=== PATIENT | female | born 1950 | race Caucasian/White ===

== ENCOUNTER → 2016-07-08 | Outpatient (CLI) | payer MEDICARE, MEDICAID ==
[~2016-07-08] MED LIST: ACET160E15 PEG; ASPI325T PEG; BUDE0.5A6 AEROSOL; DULO60CA46 PEG; GUAI100S13 PEG; HYDR-4074 PEG; IPRA3AMP AEROSOL; LANS15TA3 GT; LEVE500S PEG; LORA0.5T2 PEG; MAG360OR92 PEG; MAGN400O4 PEG; METO25TA6 PEG; METR500T PEG; POLY17PO6 PEG; QUET200T PEG; TRAZ-170 PEG; WHEY227P PEG; [UNRECOGNIZED DRUG - CODE] PEG
[2016-07-08 08:03] LABS: BLOOD, URINE 3+ (NEGATIVE); COLOR,URINE YELLOW (YELLOW); LEUKOCYTE ESTERASE ,URINE 2+ (NEGATIVE); NITRITE,URINE NEGATIVE (NEGATIVE)
[2016-07-08 08:09] LABS: WBC,URINE TNTC /HPF (0-5)
[2016-07-08 08:11] LABS: RBC,URINE 30-50 /HPF (0-3)
[2016-07-08 08:12] LABS: BACTERIA,URINE 4+ (NEGATIVE); SQUAMOUS EPITHELIAL CELL,UR NONE SEEN
== END ==
LOC: LABN.KB 07:56
PROVIDERS: ATTEND Family Medicine
DX: N39.0 Urinary tract infection, site not specified (principal)
CPT/HCPCS: 81001; 87086

== ENCOUNTER 2016-07-30 20:08 | Emergency (ER) | payer MEDICARE, MEDICAID ==
[~2016-07-30] VITALS: Ht 165.1 cm; Wt 89.6 kg
[2016-07-30 20:08] VITALS: Ht 165.1 cm; Wt 89.6 kg
--- OUTSIDE RECORDS SUMMARY | 2016-07-30 20:13 | XMS REPORT | Continuity of Care Document ---
Author Author [facility] Organization [facility] Address Unknown Phone Unavailable Support Name Relationship Address Phone CATHERINE YEE MD Caregiver [address] [place] [address] BELLE FARAH Next Of Kin [address] [place] [address] Insurance Providers Payer Name Policy Number Subscriber Name Relationship Medicare [id number] Belle Nugent 17 Self Alee [employer] [id number] Belle Nugent 17 Self Problems No known problems or medical conditions. Medications Medication Dose Route Sig Days/Qty Instructions Order Date Discontinued Date Status Trazodone Hcl 150 Mg PO BEDTIME 04/02/08 08/07/09 Discontinued Bupropion Hcl 200 Mg PO TWICE A DAY 04/02/08 08/07/09 Discontinued Sertraline Hcl 200 Mg PO DAILY 08/07/09 12/04/09 Discontinued Gabapentin 600 Mg PO THREE TIMES A DAY 12/04/09 03/17/10 Discontinued Sertraline Hcl 150 Mg PO BEDTIME 03/16/10 05/20/10 Discontinued Tramadol Hcl 50 Mg PO NEEDED 03/17/10 04/12/11 Discontinued Quetiapine Fumarate 150 Mg PO DAILY 03/17/10 05/19/10 Discontinued Pramipexole Di-Hcl 0.25 Mg PO BEDTIME 03/17/10 05/19/10 Discontinued Trazodone Hcl 75 Mg PO BEDTIME 03/17/10 05/19/10 Discontinued Albuterol Sulfate 1.25 Mg IH 1x/WK 03/17/10 04/12/11 Discontinued Ipratropium/Albuterol Sulfate 2 Puff IH NEEDED 03/17/10 04/12/11 Discontinued Pramipexole Di-Hcl 0.125 Mg PO BEDTIME 05/19/10 04/12/11 Discontinued Carbamazepine 200 Mg PO TWICE A DAY 05/19/10 05/19/10 Discontinued Potassium Chloride 20 Meq PO DAILY 05/19/10 05/20/10 Discontinued Quetiapine Fumarate 50 Mg PO DAILY 30 Qty 12/12/12 Active Quetiapine Fumarate 300 Mg PO BEDTIME 30 Qty 12/12/12 Active Levetiracetam 500 Mg PO TWICE A DAY 60 Qty 12/12/12 Active Trazodone Hcl 100 Mg PO BEDTIME 60 Qty MAY TAKE UP TO 200MG IF NEEDED Active Duloxetine Hcl 60 Mg PO DAILY 60 Qty 12/12/12 Active Vilazodone Hydrochloride 20 Mg PO DAILY 30 Qty 12/12/12 Active Social History Social History Problem Response Recorded Date/Time Smoking Status Current every day smoker 09/26/2013 7:51am Chewing Tobacco Status No 09/26/2013 7:51am Hx Substance Use Y SMOKES MARAJUANA - NONE FOR A FEW DAYS WILL REFRAIN UNTIL AFTER PROCEDURE 09/26/2013 7:51am Hx Alcohol Use No 09/26/2013 7:51am Has the pt used tobacco in the last 12 months Yes 09/26/2013 7:51am Query Response Start Date Stop Date Smoking Status Current every day smoker Hospital Discharge Instructions No hospital discharge instructions. Plan of Care No plan of care. Functional Status No functional status results. Allergies, Adverse Reactions, Alerts Allergen Type Severity Reaction Status Last Updated Pentazocine Lactate Adverse Reaction Severe VIOLENT Active 04/12/11 Codeine Adverse Reaction Unknown HEADACHE Active 04/12/11 Gold Au-198 Allergy Unknown Active 04/12/11 Immunizations Name Given Type Hx Influenza Vaccination No Historical Hx Pneumococcal Vaccination No Historical Hx Influenza Vaccination No Historical Vital Signs Acute Vital Signs Vital Response Date/Time Temperature (Fahrenheit) 97.0 deg F (96.8 - 99.1) Temperature (Calculated Celsius) 36.52428 degrees C (36.0 - 37.3) Temperature Source Temporal Pulse Rate (adult) 84 bpm (60 - 100) Respiratory Rate 16 breaths/min (10 - 20) O2 Sat by Pulse Oximetry 95 % (90 - 100) Blood Pressure 111/75 mm Hg Blood Pressure Source Automatic Cuff Height 5 ft 7 in Weight 213 lb Body Mass Index 33.0 kg/m^2 Results Test Source Date Result Interp. Ref. Range Comments Acetaminophen Level December 04, 2009 11:15am < 10 UG/ML L 10-30 Activated Partial Thromboplast Time May 20, 2010 9:35am 32.5 SEC N 24-36 Alanine Aminotransferase (ALT/SGPT) April 12, 2011 5:08pm 7 U/L L 9- 52 Albumin April 12, 2011 5:08pm 4.5 G/DL N 3.5-5.0 Albumin/Globulin Ratio April 12, 2011 5:08pm 1.2 RATIO N 1.1-2.2 Alcohol, Quantitative December 04, 2009 11:15am <10 MG/DL - Alkaline Phosphatase April 12, 2011 5:08pm 86 U/L N 38-126 Ammonia December 04, 2009 11:25am < 9 UMOL/L L 9-33 Anion Gap September 30, 2011 3:23pm 9 MEQ/L N 5-15 Aspartate Amino Transf (AST/SGOT) April 12, 2011 5:08pm 34 U/L N 14- 36 BUN/Creatinine Ratio September 30, 2011 3:23pm 18 RATIO N 6-26 Basophils # (Auto) April 12, 2011 5:08pm 0.0 T/MM3 N 0-0.2 Basophils (%) (Auto) April 12, 2011 5:08pm 0.3 % N 0-2 Blood Urea Nitrogen October 11, 2012 3:27pm 10.0 MG/DL N 7-17 Calcium Level September 30, 2011 3:23pm 9.0 MG/DL N 8.4-10.2 Calculated Osmolality September 30, 2011 3:23pm 268 MOSM/KG N 261-280 Carbamazepine (Tegretol) Level March 18, 2010 10:29am 4.0 MCG/ML N 4- 12 Carbon Dioxide Level September 30, 2011 3:23pm 28 MEQ/L N 22-30 Chloride Level September 30, 2011 3:23pm 103 MEQ/L N 98-107 Conjugated Bilirubin April 12, 2011 5:08pm 0.00 MG/DL N 0.00-0.30 Creatinine October 11, 2012 3:27pm 0.8 MG/DL N 0.7-1.2 Eosinophils # (Auto) April 12, 2011 5:08pm 0.2 T/MM3 N 0-0.5 Eosinophils (%) (Auto) April 12, 2011 5:08pm 1.9 % N 0-4 Erythrocyte Sedimentation Rate May 06, 2010 1:55pm 59 MM/HR H 0-20 Free Thyroxine March 18, 2010 10:29am 1.21 NG/DL N 0.78-2.19 Globulin April 12, 2011 5:08pm 3.9 G/DL H 2.4-3.6 Glucose Level September 30, 2011 3:23pm 55 MG/DL L 65-110 Hematocrit April 12, 2011 5:08pm 41.7 % N 36-46 Hemoglobin April 12, 2011 5:08pm 14.4 GM/DL N 12-16 Influenza Type A Antigen March 18, 2010 11:00am Negative - Negative for Flu A protein antigen. Assay sensitivity isbetween 65-83%. A negative result does not exclude influenza virus infection. "Influenza FA" may be ordered if clinical presentation warrants confirmatory testing. Influenza Type B Antigen March 18, 2010 11:00am Negative - Negative for Flu B protein antigen. Assay sensitivity isbetween 65-83%. A negative result does not exclude influenza virus infection. "Influenza FA" may be ordered if clinical presentation warrants confirmatory testing. Lymphocytes # (Auto) April 12, 2011 5:08pm 2.3 T/MM3 N 1-4.8 Lymphocytes (%) (Auto) April 12, 2011 5:08pm 22.8 % L 23-45 Magnesium Level March 18, 2010 10:29am 2.2 MG/DL N 1.6-2.3 Mean Corpuscular Hemoglobin April 12, 2011 5:08pm 29.9 UUG N 26-34 Mean Corpuscular Hemoglobin Concent April 12, 2011 5:08pm 34.5 GM/DL N 31-37 Mean Corpuscular Volume April 12, 2011 5:08pm 86.5 UM3 N 80-100 Mean Platelet Volume April 12, 2011 5:08pm 10.8 UM3 N 9.4-12.4 Monocytes # (Auto) April 12, 2011 5:08pm 0.6 T/MM3 N 0-0.8 Monocytes (%) (Auto) April 12, 2011 5:08pm 6.1 % N 0-9.0 Neutrophils # (Auto) April 12, 2011 5:08pm 7.0 T/MM3 N 1.8-7.7 Neutrophils (%) (Auto) April 12, 2011 5:08pm 68.7 % H 33-66 Phenytoin (Dilantin) Level April 28, 2009 10:30am 13.3 UG/ML N 10-20 Platelet Count April 12, 2011 5:08pm 331 T/MM3 N 130-400 Potassium Level September 30, 2011 3:23pm 4.4 MEQ/L N 3.6-5 Prolactin December 04, 2009 11:15am 8.6 NG/ML - Male: 3.3 - 20.8 ng/ mLFemale: Premenopausal: 2.1 - 47.6 ng/mL, Postmenopausal: 0 - 41.4 ng/mL Prothromb Time International Ratio May 20, 2010 9:35am 1.19 H 0.86- 1.10 THERAPUTIC RANGE=2.00-3.00 FOR ANTI-THROMBOSIS THERAPUTIC RANGE=2.50- 3.50 FOR IMPLANTED VALVE RDW Standard Deviation April 12, 2011 5:08pm 42.9 FL N 36.9-50.2 Red Blood Count April 12, 2011 5:08pm 4.82 M/MM3 N 4.00-5.20 Salicylates Level December 04, 2009 11:15am 10.0 MG/DL N 2-20 Serum Osmolality May 19, 2011 3:00pm Ref lab rpt scanned - --- 05/20/11 1258 ---SAWYEROS previously reported as: SEND OUT Sodium Level September 30, 2011 3:23pm 140 MEQ/L N 134-144 Thyroid Stimulating Hormone (TSH) May 19, 2011 3:00pm 1.49 MIU/L N 0.47-4.68 Total Bilirubin April 12, 2011 5:08pm 0.40 MG/DL N 0.20-1.30 Total Protein April 12, 2011 5:08pm 8.4 G/DL H 6.3-8.2 Troponin I December 04, 2009 11:15am 0.001 ng/ml N 0-0.12 Unconjugated Bilirubin April 12, 2011 5:08pm 0.00 MG/DL N 0.00-1.10 Urine Amorphous Urates December 04, 2009 11:28am Many - Has specimen been collected/obtained? Y Urine Amphetamines Screen December 04, 2009 11:28am Positive NG/ML - Urine Bacteria April 12, 2011 6:26pm Trace H - Has specimen been collected/obtained? Y Urine Barbiturates Screen December 04, 2009 11:28am Negative NG/ML - Urine Benzodiazepines Screen December 04, 2009 11:28am Negative NG/ML - Urine Bilirubin April 12, 2011 6:26pm Negative - Has specimen been collected/obtained? Y Urine Blood April 12, 2011 6:26pm 4+ H - Has specimen been collected/ obtained? Y Urine Cocaine Screen December 04, 2009 11:28am Negative NG/ML - Urine Collection Type April 12, 2011 6:26pm Voided - QUANTITY NOT SUFFICIENT MICROSCOPIC PERFORMED ON UNSPUNURINE JTA Urine Color April 12, 2011 6:26pm Yellow - Has specimen been collected/obtained? Y Urine Culture Indicated April 12, 2011 6:26pm Cult not indicated - Has specimen been collected/obtained? Y Urine Drug Screen Confirmation December 04, 2009 11:38am Sent out - Urine Glucose (UA) April 12, 2011 6:26pm Negative - Has specimen been collected/obtained? Y Urine Hyaline Casts August 07, 2009 5:40pm 20-30 /LPF - Has specimen been collected/obtained? Y Urine Ketones April 12, 2011 6:26pm Negative - Has specimen been collected/obtained? Y Urine Leukocyte Esterase April 12, 2011 6:26pm Trace H - Has specimen been collected/obtained? Y Urine Methamphetamines Screen December 04, 2009 11:28am Positive NG/ML - Urine Mucus March 09, 2010 10:26am Present - Urine Nitrite April 12, 2011 6:26pm Negative - Has specimen been collected/obtained? Y Urine Opiates Screen December 04, 2009 11:28am Negative NG/ML - Urine Osmolality May 19, 2011 3:00pm Ref lab rpt scanned - --- 05/20/11 1258 ---UOSM previously reported as: SEND OUT Urine Phencyclidine Screen December 04, 2009 11:28am Negative NG/ML - Urine Protein April 12, 2011 6:26pm Trace H - Has specimen been collected/obtained? Y Urine RBC April 12, 2011 6:26pm 3-5 /HPF H - Has specimen been collected/obtained? Y Urine Specific Reading April 12, 2011 6:26pm 1.020 - Has specimen been collected/obtained? Y Urine Squamous Epithelial Cells April 12, 2011 6:26pm Few - Has specimen been collected/obtained? Y Urine Tricyclic Antidepressants December 04, 2009 11:28am Negative NG/ML - Urine Turbidity April 12, 2011 6:26pm Clear - Has specimen been collected/obtained? Y Urine Urobilinogen April 12, 2011 6:26pm Normal EU/DL - Has specimen been collected/obtained? Y Urine WBC April 12, 2011 6:26pm 0-1 /HPF - PERFORMED ON UNSPUN URINE JTA Urine pH April 12, 2011 6:26pm 9.0 H - Has specimen been collected/ obtained? Y Vitamin B12 Level December 04, 2009 11:15am 513 PG/ML N 239-931 White Blood Count April 12, 2011 5:08pm 10.2 T/MM3 N 4.5-11.0 Zinc Level March 16, 2010 12:10pm Ref lab rpt scanned - --- 03/25 1622 ---ZINCS previously reported as: SEND OUT Lab Scanned Report October 11, 2012 7:42pm LAB TEST FORM REQUEST [id number] - Urine Methadone Screen December 04, 2009 11:28am Negative NG/ML - Urine Cannabinoids Screen December 04, 2009 11:28am Positive NG/ML - Glomerular Filtration Rate Calc October 11, 2012 3:27pm 73 - Immature Granulocyte # (Auto) April 12, 2011 5:08pm 0.02 T/MM3 N 0.00- 0.03 Immature Granulocyte % (Auto) April 12, 2011 5:08pm 0.2 % N 0.0-0.5 Urine Acetaminophen Screen December 04, 2009 11:28am Negative NG/ML - Urine Microscopic Not Indicated May 06, 2010 1:47pm Not indicated - Blood Culture Blood May 06, 2010 2:00pm NO GROWTH AFTER 5 DAYS Gram Stain Shoulder, Intraoperative Site-Left May 20, 2010 2:14pm Urine Culture Urine, Clean Catch Voided March 18, 2010 11:22am Mixed Gram Positive Organisms Procedures Procedure Status Date Provider(s) INJECT SPINE LUMBAR/SACRAL completed 09/05/13 CATHERINE YEE MD Lumbar epidural steroid injection completed 09/26/13 CATHERINE YEE MD
--- OUTSIDE RECORDS SUMMARY | 2016-07-30 20:13 | XMS REPORT | Referral Summary ---
Author Author [facility] Organization [facility] Address Unknown Phone Unavailable Care Team Providers Care Director Of Communications Name Role Phone Cuate Ruelas Primary Care Physician [phone] Encounter Date(s): 02/24/16 - 02/24/16 [facility], [address] [place] [address]- Discharge Diagnosis: Malfunction of gastrostomy tube Discharge Disposition: 01-Home or Self Care Attending Physician: Romeo Mccoy MD Admitting Physician: Romeo Mccoy MD Referring Physician: Cathie Ruelas MD Vital Signs Most recent to 1 oldest [Reference Range]: Temperature Tympanic 36.5 degC [36.6-38.1 degC] *LOW* (02/24/16 8:37 AM) Peripheral Pulse 60 bpm Rate [60-100 bpm] (02/24/16 8:37 AM) Blood Pressure 100/70 mmHg [90-140/60-90 mmHg] (02/24/16 8:37 AM) SpO2 92 % (02/24/16 8:37 AM) Problem List Condition Effective Dates Status Health Status Informant Acute Active pain(Confirmed) Alteration in Active nutrition(Confirmed) 1 Fusion of Active patient spine(Confirmed) Anxiety(Confirmed) Active patient At risk for Active infection(Confirmed) 2 At risk for Active injury(Confirmed)3 At risk of pressure Active sore(Confirmed) Stroke(Confirmed) 07/2015 Active Depression(Confirmed Active patient ) Pseudoseizures(Confi Active patient rmed) Ineffective airway Active clearance(Confirmed) 4 Knowledge Active deficit(Confirmed)5 Self -care Active deficit(Confirmed)6 Spondylisthesis(Conf Active patient irmed) 1Problem added automatically by system based on initiation of Alteration in Nutrition Plan of Care 2Problem added automatically by system based on initiation of At Risk for Infection in Nutrition Plan of Care 3Problem added automatically by system based on initiation of Risk for Injury Plan of Care 4Problem added automatically by system based on initiation of Ineffective Airway Clearance Plan of Care 5Problem added automatically by system based on initiation of Knowledge Deficit Plan of Care 6Problem added automatically by system based on initiation of Self Care Deficit Plan of Care Allergies, Adverse Reactions, Alerts Substance Reaction Severity Status codeine unknown Active gold containing compounds Active Talwin Active Medications albuterol 5 mg/mL (0.5%) inhalation solution 2.5 mg 0.5 mL, NEB, q4hr (scheduled), 0 Refill(s) Start Date: 08/21/15 Status: Ordered cefdinir 250 mg/5 mL oral liquid 300 mg 6 mL, Oral, BID, 0 Refill(s) Start Date: 08/21/15 Status: Ordered Colace 100 mg 10 mL, Dobhoff Tube, BID, 0 Refill(s) Start Date: 08/21/15 Status: Ordered enoxaparin 40 mg/0.4 mL injectable solution 40 mg 0.4 mL, SubCutaneous, Daily, 0 Refill(s) Start Date: 08/21/15 Status: Ordered fentaNYL 50 mcg/hr transdermal film, extended release 1 patches, Topical, q72hr, [facility] [phone], # 10 patches, 0 Refill(s) Start Date: 02/23/16 Status: Ordered ipratropium 500 mcg/2.5 mL inhalation solution 0.5 mg 2.5 mL, NEB, q4hr (scheduled), 0 Refill(s) Start Date: 08/21/15 Status: Ordered ipratropium-albuterol 0.5 mg-2.5 mg/3 mLinhalation solution See Instructions, USE 1 VIAL PER NEBULIZER 3 TIMES DAILY, # 90 oz, 4 Refill(s), eRx: [facility], USE 1 VIAL PER NEBULIZER 3 TIMES DAILY Start Date: 10/22/15 Status: Ordered levETIRAcetam 100 mg/mL oral solution 1,000 mg 10 mL, Dobhoff Tube, q12hr (scheduled), 0 Refill(s) Start Date: 08/21/15 Status: Ordered LORazepam 0.5 mg oral tablet 0.5 mg 1 tabs, Oral, q4hr, as needed for anxiety, [facility] [phone] , # 180 tabs, 0 Refill(s) Start Date: 12/31/15 Status: Ordered metoprolol tartrate 25 mg oral tablet 25 mg 1 tabs, PEG-Tube, BID, 0 Refill(s) Start Date: 08/21/15 Status: Ordered MiraLax 17 g 1 packets, Oral, Daily, 0 Refill(s) Start Date: 08/21/15 Status: Ordered MS Contin 15 mg/12 hr oral tablet, extended release 15 mg 1 tabs, Oral, BID, [facility], # 60 tabs, 0 Refill(s) Start Date: 01/05/16 Status: Ordered [place] 7.5 mg-325 mg oral tablet 1 tabs, Oral, QID, [facility] [phone], # 240 tabs, 0 Refill(s) Start Date: 02/02/16 Status: Ordered ocular lubricant Eye-Both, QID, Dry Eyes, 0 Refill(s) Start Date: 08/21/15 Status: Ordered Resource Benefiber 4 g 1 packets, Dobhoff Tube, BID, 0 Refill(s) Start Date: 08/21/15 Status: Ordered Senokot S 50 mg-8.6 mg oral tablet 1 tabs, Oral, Daily, Constipation, 0 Refill(s) Start Date: 08/21/15 Status: Ordered Results No data available for this section Immunizations Vaccine Date Refusal Reason pneumococcal 23-polyvalent vaccine 08/19/15 Procedures Procedure Date Related Diagnosis Body Site Change of gastrostomy tube, percutaneous, 02/24/16 without imaging or endoscopic guidance Esophagogastroduodenoscopy with Peg 08/18/15 Placement1 Tracheostomy Percutaneous2 08/18/15 Cholecystectomy; Fusion of spine Hysterectomy 1auto-populated from documented surgical case 2auto-populated from documented surgical case Social History Social History Type Response Smoking Status Former smoker Assessment and Plan Extracted from: Title: Ambulatory Patient Education Author: Romeo Mccoy MD Date: Procedures Care of a Feeding Tube People who have trouble swallowing or cannot take food or medicine by mouth are sometimes given feeding tubes. A feeding tube can go into the nose and down to the stomach or through the skin in the abdomen and into the stomach or small bowel. Some of the names of these feeding tubes are gastrostomy tubes, PEG lines , nasogastric tubes, and gastrojejunostomy tubes. SUPPLIES NEEDED TO CARE FOR THE TUBE SITE Clean gloves. Clean wash cloth, gauze pads, or soft paper towel. Cotton swabs. Skin barrier ointment or cream. Soap and water. Pre-cut foam pads or gauze (that go around the tube). Tube tape. TUBE SITE CARE 1.Have all supplies ready and available. 2.Wash hands well. 3.Put on clean gloves. 4.Remove the soiled foam pad or gauze, if present, that is found under the tube stabilizer. Change the foam pad or gauze daily or when soiled or moist. 5.Check the skin around the tube site for redness, rash, swelling, drainage , or extra tissue growth. If you notice any of these, call your caregiver. 6.Moisten gauze and cotton swabs with water and soap. 7.Wipe the area closest to the tube (right near the stoma) with cotton swabs. Wipe the surrounding skin with moistened gauze. Rinse with water. 8.Dry the skin and stoma site with a dry gauze pad or soft paper towel. Do not use antibiotic ointments at the tube site. 9.If the skin is red, apply a skin barrier cream or ointment (such as petroleum jelly) in a circular motion, using a cotton swab. The cream or ointment will provide a moisture barrier for the skin and helps with wound healing. 10.Apply a new pre-cut foam pad or gauze around the tube. Secure it with tape around the edges. If no drainage is present, foam pads or gauze may be left off. 11.Use tape or an anchoring device to fasten the feeding tube to the skin for comfort or as directed. Rotate where you tape the tube to avoid skin damage from the adhesive. 12.Position the person in a semi-upright position (3045 degree angle). 13.Throw away used supplies. 14.Remove gloves. 15.Wash hands. SUPPLIES NEEDED TO FLUSH A FEEDING TUBE Clean gloves. 60 mL syringe (that connects to the feeding tube). Towel. Water. FLUSHING A FEEDING TUBE 1.Have all supplies ready and available. 2.Wash hands well. 3.Put on clean gloves. 4.Draw up 30 mL of water in the syringe. 5.Kink the feeding tube while disconnecting it from the feeding-bag tubing or while removing the plug at the end of the tube. Kinking closes the tube and prevents secretions in the tube from spilling out. 6.Insert the tip of the syringe into the end of the feeding tube. Release the kink. Slowly inject the water. 7.If unable to inject the water, the person with the feeding tube should lay on his or her left side. The tip of the tube may be against the stomach wall , blocking fluid flow. Changing positions may move the tip away from the stomach wall. After repositioning, try injecting the water again. Do not use a syringe smaller than 60 mL to flush the tubing. Do not use excessive force to overcome resistance because this could cause the tube to rupture. 8.After injecting the water, remove the syringe. 9.Always flush before giving the first medicine, between medicines, and after the final medicine before starting a feeding. This prevents medicines from clogging the tube. Do not mix medicines with formula or with other medicines before giving medicines. Thoroughly flush medicines through the tube so they do not mix with formula. 10.Throw away used supplies. 11.Remove gloves. 12.Wash hands. This information is not intended to replace advice given to you by your health care provider. Make sure you discuss any questions you have with your health care provider. Document Released: 03/13/2006 Document Revised: 02/27/2013 Document Reviewed: [employer] Interactive Patient Education 2016 [employer] No follow up information was provided. Extracted from: Title: Office Visit Note Author: Romeo Mccoy MD Date: 02/24/16 Assessment/Plan 1.Malfunction of gastrostomy tube Ordered: Change Of Gastrostomy Tube 40957 Office Visit Level 1 New [address] Plan: Placement of 22 Fr. Medline Silicone Gastrostomy Feeding Tube . Patient wasplaced in a somewhat supine fashion within her wheelchair. The balloon of theFoley catheter was deflatedandFoley catheter was removed. A 22 Frenchgastrostomy tubewas then easily placed through the G-tuberacked advanced into the stomach without difficulty. Approximately 8 mLofwater was injected into theG-tube balloon. The bolster portion of thecatheter was inplaced against theanterior abdominal wall. Aumbilical tapewas then utilizedto secure the bolster at this location. Patient tolerated this without difficulty. Patient to follow-up on when necessary basis.
--- OUTSIDE RECORDS SUMMARY | 2016-07-30 20:14 | XMS REPORT | Continuity of Care Document ---
Author Author [facility] Address Unknown Phone Unavailable Allergies Active Description Code Type Severity Reaction Onset Reported/Identified Relationship to Patient Clinical Status Yes CODEINE Drug Allergy N/A N/A Yes PENTAZOCINE LACTATE 084271 Drug Allergy N/A N/A Yes MIGUELINA [id number] Drug Allergy N/A N/A Medications Medication Packaging Start Date Stop Date Route Dosage Sig [id number] 10/08/2013 Oral twice daily Problems Procedures Results Encounters ACCT No. Visit Date/Time Discharge Status Pt. Type Provider Facility Loc./Unit Complaint [id number] 02/12/2016 15:59:18 02/12/2016 15:59:18 DIS Outpatient [id number] 02/12/2016 15:58:18 02/12/2016 15:58:18 DIS Outpatient [id number] 02/12/2016 15:58:03 02/12/2016 15:58:03 DIS Outpatient [id number] 02/12/2016 15:57:47 02/12/2016 15:57:47 DIS Outpatient [id number] 11/17/2015 03:04:05 11/17/2015 03:04:05 ACT Outpatient [id number] 11/17/2015 02:56:55 11/17/2015 02:56:55 ACT Outpatient [id number] 11/17/2015 02:56:34 11/17/2015 02:56:34 ACT Outpatient [id number] 11/17/2015 02:49:37 11/17/2015 02:49:37 ACT Outpatient [id number] 11/17/2015 02:49:27 11/17/2015 02:49:27 ACT Outpatient [id number] 11/17/2015 02:49:26 11/17/2015 02:49:26 ACT Outpatient [id number] 11/17/2015 02:49:13 11/17/2015 02:49:13 ACT Outpatient [id number] 11/17/2015 02:49:12 11/17/2015 02:49:12 ACT Outpatient [id number] 11/17/2015 01:27:46 11/17/2015 01:27:46 ACT Outpatient [id number] 11/17/2015 01:16:27 11/17/2015 01:16:27 ACT Outpatient [id number] 11/17/2015 01:16:25 11/17/2015 01:16:25 ACT Outpatient [id number] 11/16/2015 18:15:49 11/16/2015 18:15:49 ACT Outpatient [id number] 11/16/2015 17:44:38 11/16/2015 17:44:38 ACT Outpatient [id number] 10/21/2014 12:12:49 10/21/2014 12:12:52 DIS Outpatient [id number] 10/08/2014 13:45:50 10/08/2014 23:59:59 CLS Outpatient [id number] 10/08/2014 13:21:21 10/08/2014 23:59:59 CLS Outpatient [id number] 10/08/2014 13:21:20 10/08/2014 23:59:59 CLS Outpatient [id number] 10/08/2014 13:14:28 10/08/2014 23:59:59 CLS Outpatient [id number] 10/08/2014 12:46:24 10/08/2014 23:59:59 CLS Outpatient [id number] 10/08/2014 12:46:21 10/08/2014 23:59:59 CLS Outpatient [id number] 10/08/2014 12:47:13 10/08/2014 12:47:16 DIS Outpatient [id number] 08/15/2014 16:14:03 08/15/2014 16:14:04 DIS Outpatient [id number] 06/21/2014 13:01:42 06/21/2014 23:59:59 CLS Outpatient [id number] 06/21/2014 13:01:43 06/21/2014 13:01:43 DIS Outpatient [id number] 05/04/2016 10:54:33 DIS Outpatient [id number] 05/04/2016 10:53:39 DIS Outpatient [id number] 01/22/2016 15:57:55 DIS Outpatient [id number] 01/22/2016 15:56:55 DIS Outpatient [id number] 01/22/2016 15:56:52 DIS Outpatient [id number] 01/19/2016 08:19:54 DIS Outpatient [id number] 11/16/2015 17:30:41 Document Registration [id number] 11/16/2015 17:30:00 Document Registration [id number] 12/03/2014 07:15:54 Document Registration [id number] 12/03/2014 07:15:51 Document Registration [id number] 10/21/2014 08:37:42 Document Registration [id number] 10/08/2014 16:45:31 Document Registration [id number] 10/08/2014 16:39:42 Document Registration [id number] 10/08/2014 12:51:00 Document Registration
--- OUTSIDE RECORDS SUMMARY | 2016-07-30 20:14 | XMS REPORT | Continuity of Care Document ---
Author Author [facility] Organization [facility] Address Unknown Phone Unavailable Support Name Relationship Address Phone MINE RUELAS MD Caregiver [address] [place] [address] Unavailable KRISTOPHER BARNES MD Caregiver [address] [place] [address] Unavailable KRISTOPHER BARNES MD Caregiver [address] [place] [address] Unavailable SHAMEKA ROSE DO Caregiver [address] [place] [address] Unavailable ANDRA COLLINS (DPOA) Next Of Kin [address] [place] [address] Insurance Providers Guarantor Belle Loza Address [address] [place] [address] [place] Email DENIED TO [place] Payer Medicare Policy Number [id number] Subscriber's Name Belle Loza Relationship 18 Self Effective Date 06 Advance Directives Directive Response Recorded Date/Time Ordered Resuscitation Status Full Code 03/09/16 5:30pm Resuscitation Documents on File Yes 03/09/16 4:49pm DPOA for Healthcare Only Y ANDRA DENNIS- BOYFRIEND 03/12/16 2:41pm Living Will Yes 03/09/16 4:49pm Problems Active Problems Medical Problem Onset Date Status Anxiety and depression Unknown Chronic Asthma Unknown Chronic C. difficile colitis Unknown Resolved C. 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 Tobacco dependence Unknown Chronic UTI (urinary tract infection) ~09/27/2015 Resolved VAP (ventilator-associated pneumonia) 08/18/2015 Resolved VRE (vancomycin-resistant Enterococci) Unknown Chronic Surgical Problem Onset Date Status PEG (percutaneous endoscopic gastrostomy) status Unknown Acute Past Problems Medical Problem Onset Date Cerebrovascular accident, hemorrhagic Unknown Contusion of left hip Unknown Contusion of left hip Unknown Facial contusion Unknown Gastrojejunostomy tube dislodgement Unknown Left shoulder strain Unknown Minor head injury without loss of consciousness Unknown [id number] Unknown Medications Current Home Medications Medication Dose Units Route Directions Days Qty Instructions Start Date Acetaminophen 160 Mg/5 Ml Elixir 640 Mg Peg Tube Every 6 Hours as needed for Pain 10/03/15 Aspirin 325 Mg Tablet 325 Mg Peg Tube Daily 02/23/16 Budesonide 0.5 Mg/2 Ml Ampul.neb 0.5 Mg Aerosol Tx. Twice A Day 09/25/15 Duloxetine Hcl (Cymbalta) 60 Mg Capsule.dr 60 Mg Peg Tube Daily 02/23/16 Guaifenesin 100 Mg/5 Ml Liquid 400 Mg Peg Tube Twice A Day as needed for Cough 02/23/16 Hydrocodone/Apap 7.5/325 Mg (Perkins 7.5-325 Tablet) 7.5-325 Tablet 1 Tab Peg Tube Every 8 Hours as needed for Pain 02/23/16 Ipratropium/Albuterol Sulfate (Iprat-Albut 0.5-3(2.5) Mg/3 Ml) 3 Ml Ampul.neb 1 Vial Aerosol Tx. Three Times A Day 09/25/15 Lansoprazole (Prevacid) 15 Mg Tab.rap.dr 15 Mg G Tube Before Breakfast 30 03/17/16 Levetiracetam 500 Mg/5 Ml Solution 1,000 Mg Peg Tube Every 12 Hours 10/03/15 Lorazepam 0.5 Mg Tablet 0.5 Mg Peg Tube Every 4 Hours as needed for Agitation 02/23/16 Mag Hydrox/Al Hydrox/Simeth (Alum-Mag Hydroxide-Simeth Liq) 360 Ml Oral.susp 30 Ml Peg Tube Every 4 Hours as needed for Epigastric Distress Magnesium Hydroxide (Milk Of Magnesia) 400 Mg/5 Ml Oral.susp 30 Ml Peg Tube Daily as needed for Constipation 30 Days 10/02/15 Metoprolol Tartrate 25 Mg Tablet 12.5 Mg Peg Tube Twice Daily With Meals 10/06/15 Metronidazole (Flagyl) 500 Mg Tablet 500 Mg Peg Tube Three Times Daily With Meals for C Diff 36 Tablet 03/17/16 Nutritional Supplement (Nutren 2.0) 250 Ml Liquid 250 Ml Peg Tube Three Times A Day 10/03/15 Polyethylene Glycol 3350 (Miralax) 17 Gm Powd.pack 17 G Peg Tube Daily as needed for Constipation 1 Bottle Take 17 Grams (1 capful), by mouth, once a day. 03/17/16 Quetiapine Fumarate (Seroquel) 200 Mg Tablet 200 Mg Peg Tube Twice A Day 02/23/16 Trazodone Hcl 50 Mg Tablet 25 Mg Peg Tube Bedtime 02/23/16 Whey Protein Isolate (Beneprotein) 227 Gm Powder 1 Dose Peg Tube Twice A Day 03/09/16 Past Home Medications Medication Directions Ordered Status Albuterol Sulfate 1.25 Mg/3 Ml Vial.neb., 1.25 Mg Inhalation 1X/Wk 03/17/10 Discontinued Bupropion Hcl (Wellbutrin Sr) 200 Mg Tablet.sa, 200 Mg Oral Twice A Day 04/02 Discontinued Carbamazepine (Tegretol) 200 Mg Tablet, 200 Mg Oral Twice A Day 05/19/10 Discontinued Diazepam 5 Mg Tablet, 08/07/14 Discontinued Duloxetine Hcl (Cymbalta) 60 Mg Capsule.dr, 120 Mg Oral Daily 12/12/12 Discontinued Enoxaparin Sodium (Lovenox) 40 Mg/0.4 Ml Inj, 30 Ml Sub-Q Every 12 Hours 04/11 Discontinued Gabapentin (Neurontin) 600 Mg Tablet, 600 Mg Oral Three Times A Day 12/04/09 Discontinued Hydrocodone/Acetaminophen (Lortab 7.5-325 Mg Tablet) 1 Each Tablet, 1 Tab Oral Every 4 Hours as needed for Pain 09/25/15 Discontinued Inhaler , as needed for Air Hunger 07/09/14 Discontinued Ipratropium/Albuterol Sulfate (Combivent Inhaler) 14.7 Gm Aer.w.adap, 2 Puff Inhalation As Needed 03/17/10 Discontinued Levetiracetam 500 Mg Tablet, 1000 Mg Oral Every 12 Hours 09/25/15 Discontinued Levetiracetam 500 Mg Tablet, 500 Mg Oral Twice A Day 12/12/12 Discontinued Metoclopramide Hcl 5 Mg/5 Ml Solution, 5 Mg Peg Tube Every 8 Hours 10/06/15 Discontinued Metoclopramide Hcl 5 Mg Tablet, 5 Mg Oral Every 8 Hours 09/25/15 Discontinued Metoprolol Tartrate 50 Mg Tablet, 50 Mg Oral Twice Daily With Meals 09/25/15 Discontinued Pantoprazole Sodium (Protonix) 20 Mg Tablet, 20 Mg Peg Tube Before Breakfast 10/06/15 Discontinued Polyethylene Glycol 3350 (Healthylax) 17 Gm Powd.pack, 17 G Peg Tube Daily Discontinued Potassium Chloride 20 Meq Tab.prt.sr, 20 Meq Oral Daily 05/19/10 Discontinued Pramipexole Di-Hcl (Mirapex) 0.125 Mg Tablet, 0.125 Mg Oral Bedtime 05/19/10 Discontinued Pramipexole Di-Hcl (Mirapex) 0.25 Mg Tablet, 0.25 Mg Oral Bedtime 03/17/10 Discontinued Quetiapine Fumarate (Seroquel Xr) 50 Mg Tablet, 50 Mg Oral Daily 12/12/12 Discontinued Quetiapine Fumarate (Seroquel Xr) 300 Mg Tab.sr.24h, 300 Mg Oral Bedtime Discontinued Quetiapine Fumarate (Seroquel) 100 Mg Tablet, 150 Mg Oral Daily 03/17/10 Discontinued Sertraline Hcl (Zoloft) 100 Mg Tablet, 150 Mg Oral Bedtime 03/16/10 Discontinued Sertraline Hcl (Zoloft) 100 Mg Tablet, 200 Mg Oral Daily 08/07/09 Discontinued Tramadol Hcl 50 Mg Tablet, 50 Mg Oral As Needed 03/17/10 Discontinued Trazodone Hcl (Desyrel) 100 Mg Tablet, 100 Mg Oral Bedtime 12/12/12 Discontinued Trazodone Hcl 50 Mg Tablet, 75 Mg Oral Bedtime 03/17/10 Discontinued Trazodone Hcl 150 Mg Tablet, 150 Mg Oral Bedtime 04/02/08 Discontinued Vilazodone Hydrochloride (Viibryd) 20 Mg Tablet, 20 Mg Oral Daily 12/12/12 Discontinued Social History Social History Problem Response Recorded Date/Time Onset Date Status Reason for Hospitalization Sepsis 03/17/2016 11:34am Not Applicable Not Applicable Chewing Tobacco Status No 09/26/2013 7:51am Not Applicable Not Applicable Hx Substance Use N HX MARIJUANA 03/09/2016 3:29pm Not Applicable Not Applicable Hx Alcohol Use No 03/09/2016 3:29pm Not Applicable Not Applicable Has the pt used tobacco in the last 12 months Yes 03/09/2016 4:51pm Not Applicable Not Applicable Tobacco Usage smoke 09/24/2015 4:38pm Not Applicable Not Applicable Query Response Start Date Stop Date Smoking Status Current every day smoker Hospital Discharge Instructions Instructions: Care Instructions: Reason for Hospitalization: Sepsis I was in the hospital because (patient own words): PATIENT STATES, "TRANSFERRING ME FROM ONE PLACE TO THE NEXT" Discharge Diet: NPO - Tube feeding Discharge Activity: Up with assistance Follow Up Appointments: Dr Ruelas in 1 week Pending Lab / Results: No Pending Lab Patient Instructions: See Extended facility care instructions Wound/Incision Care: n/a Pain Management/Treatment: Tylenol/Perkins prn Expected Signs/Symptoms: Improvement of bowel function Notify Physician If: Temp >100.4, N/V During Business Hours:: Nursing staff at [facility] After Business Hours:: Nursing staff at [facility] Condition at time of discharge: Good Plan of Care Discharge Date 03/17/16 1:28pm Disposition 04 TO [facility] Instructions/Education Provided DI for Urinary Tract Infection (UTI) DI for Sepsis -- Adult Encephalopathy Prescriptions See Medication Section Care Plan and Goals See Discharge Instructions Section Functional Status Query Response Date Recorded Mobility Status Transfer w/assist March 17, 2016 11:34am Assistive Devices FULL LIFT March 17, 2016 11:34am Activity Limitations Weakness Shortness of breath Pain Cough March 17, 2016 11:34am Feeding Ability Dependent March 17, 2016 11:34am Toileting Ability Dependent March 17, 2016 11:34am Grooming Ability Dependent March 17, 2016 11:34am Dressing Ability Dependent March 17, 2016 11:34am Driving Ability Dependent March 17, 2016 11:34am Housework Ability Dependent March 17, 2016 11:34am Meal Preparation Ability Dependent March 17, 2016 11:34am Stair Climbing Ability Dependent March 17, 2016 11:34am Ability to complete ADL's impeded by Impaired Mobility Change in Cognition March 17, 2016 11:34am Cognitive/Perceptual Impairments Impaired hearing Chronic confusion Imp. verbal communication March 17, 2016 11:34am Visual Assistive Devices Glasses March 15, 2016 7:16pm Allergies, Adverse Reactions, Alerts Allergen Type Severity Reaction Status Last Updated Pentazocine Lactate Adverse Reaction Severe VIOLENT Active 03/09/16 Codeine Adverse Reaction Unknown HEADACHE Active 03/09/16 gold Au 198 Allergy Unknown Active 03/09/16 Immunizations Query Response on File Recorded Date/Time Hx Influenza Vaccination N Unknown 03/09/16 4:51pm Hx Pneumococcal Vaccination Y Pt. reports last year 03/09/16 4:51pm Hx Influenza Vaccination N Unknown 03/09/16 4:51pm Influenza Vaccine Hx JANUARY 08, 2016 03/11/16 3:41pm Tdap Vaccine Hx UNKNOWN 10/06/15 1:38pm Vital Signs Acute Vital Signs Vital Response Date/Time Temperature (Fahrenheit) 97.1 deg F (96.8 - 99.1) 03/17/2016 1:01pm Temperature (Calculated Celsius) 36.22710 degrees C (36.0 - 37.3) 03/17/2016 1:01pm Pulse Rate (adult) 77 bpm (60 - 100) 03/17/2016 1:01pm Respiratory Rate 14 breaths/min (10 - 20) 03/17/2016 1:01pm O2 Sat by Pulse Oximetry 93 % (90 - 100) 03/17/2016 1:01pm Oxygen Delivery Method Room Air 03/17/2016 9:36am Oxygen Delivery Method Room Air 03/17/2016 1:01pm Oxygen Flow Rate 1.00 L/min 03/15/2016 10:42am Blood Pressure 144/97 mm Hg 03/17/2016 1:01pm Blood Pressure Source Automatic Cuff 03/17/2016 1:01pm Height (Feet) 5 feet 03/17/2016 10:53am Height (Inches) 6.00 inches 03/17/2016 10:53am Weight (Kilograms) 86.900 kg 03/17/2016 8:02am Body Mass Index (BMI) 32.3 03/09/2016 4:47pm Results Laboratory Results Test Name Result Units Flags Reference Collection Date/Time Result Date/ Time Comments Urinalysis Comment MICROSCOPIC NOT IND. 01/12/2016 10:45am 2015 11:39am White Blood Count 9.0 T/MM3 4.5-11.0 03/17/2016 4:47am 03/17/2016 5: 17am Red Blood Count 3.92 M/MM3 L 4.00-5.20 03/17/2016 4:47am 03/17/2016 5: 17am Hemoglobin 11.4 GM/DL L 12-16 03/17/2016 4:47am 03/17/2016 5:17am Hematocrit 35.7 % L 36-46 03/17/2016 4:4703/17/2016 5:17am Mean Corpuscular Volume 91.1 UM3 80-100 03/17/2016 4:4703/17/2016 5: 17am Mean Corpuscular Hemoglobin 29.1 UUG 26-34 03/17/2016 4:472015 5:17am Mean Corpuscular Hemoglobin Concent 31.9 GM/DL 31-37 03/17/2016 4:4703/17/2016 5:17am RDW Standard Deviation 44.0 FL 36.9-50.2 03/17/2016 4:4703/17/2016 5 :17am Platelet Count 225 T/MM3 130-400 03/17/2016 4:4703/17/2016 5:17am Mean Platelet Volume 12.6 UM3 H 9.4-12.4 03/17/2016 4:4703/17/2016 5: 17am Neutrophils (%) (Auto) 50.6 % 33-66 03/17/2016 4:4703/17/2016 5: 17am Lymphocytes (%) (Auto) 33.9 % 23-45 03/17/2016 4:4703/17/2016 5: 17am Monocytes (%) (Auto) 8.2 % 0-9.0 03/17/2016 4:4703/17/2016 5:17am Eosinophils (%) (Auto) 6.9 % H 0-4 03/17/2016 4:4703/17/2016 5:17am Basophils (%) (Auto) 0.2 % 0-2 03/17/2016 4:4703/17/2016 5:17am Immature Granulocyte % (Auto) 0.2 % 0.0-0.5 03/17/2016 4:472015 5:17am Absolute Neutrophils (auto) 4.5 T/MM3 1.8-7.7 03/17/2016 4:472015 5:17am Absolute Lymphocytes (auto) 3.0 T/MM3 1-4.8 03/17/2016 4:472015 5:17am Absolute Monocytes (auto) 0.7 T/MM3 0-0.8 03/17/2016 4:47am 03/17/2016 5:17am Absolute Eosinophils (auto) 0.6 T/MM3 H 0-0.5 03/17/2016 4:47am 2015 5:17am Absolute Basophils (auto) 0.0 T/MM3 0-0.2 03/17/2016 4:47am 03/17/2016 5:17am Absolute Immature Granulocyte (auto 0.02 T/MM3 0.00-0.03 03/17/2016 4: 47am 03/17/2016 5:17am Neutrophils % (Manual) 61.0 % 33-66 03/12/2016 4:29am 03/12/2016 6: 42am Band Neutrophils % 1.0 % 0-6 03/12/2016 4:03/12/2016 6:42am Lymphocytes % (Manual) 30.0 % 23-45 03/12/2016 4:03/12/2016 6: 42am Monocytes % (Manual) 3.0 % 0-9.0 03/12/2016 4:03/12/2016 6:42am Reactive Lymphocytes % 5.0 % H 0-0 03/12/2016 4:03/12/2016 6:42am Band Neutrophils # 0.1 T/MM3 03/12/2016 4:2903/12/2016 6:42am Absolute Neutrophils (Manual) 4.7 T/MM3 1.8-7.7 03/12/2016 4:03/12 6:42am Lymphocytes # (Manual) 2.3 T/MM3 1-4.8 03/12/2016 4:03/12/2016 6: 42am Monocytes # (Manual) 0.2 T/MM3 0-0.8 03/12/2016 4:03/12/2016 6: 42am Reactive Lymphocytes # 0.4 T/MM3 H 0-0 03/12/2016 4:2903/12/2016 6: 42am Red Cell Morphology Comment NORMAL 03/12/2016 4:2903/12/2016 6: 42am Icterus Index < 2 0-7 03/17/2016 4:47am 03/17/2016 5:22am Chemistry Specimen Hemolysis < 15 0-25 03/17/2016 4:47am 03/17/2016 5 :22am 0-25: Specimen Exhibited No Hemolysis. Turbidity < 20 0-20 03/17/2016 4:47am 03/17/2016 5:22am Sodium Level 146 MEQ/L H 134-144 03/17/2016 4:47am 03/17/2016 5:22am Potassium Level 3.6 MEQ/L 3.6-5 03/17/2016 4:47am 03/17/2016 5:22am Chloride Level 109 MEQ/L H 98-107 03/17/2016 4:47am 03/17/2016 5:22am Carbon Dioxide Level 28 MEQ/L 22-30 03/17/2016 4:47am 03/17/2016 5: 22am Anion Gap 9 MEQ/L 5-15 03/17/2016 4:47am 03/17/2016 5:22am Blood Urea Nitrogen 14.0 MG/DL 7-17 03/17/2016 4:47am 03/17/2016 5: 22am Creatinine 0.6 MG/DL L 0.7-1.2 03/17/2016 4:47am 03/17/2016 5:22am BUN/Creatinine Ratio 23 RATIO 6-26 03/17/2016 4:47am 03/17/2016 5:22am Glomerular Filtration Rate Calc 100 03/17/2016 4:47am 03/17/2016 5: 22am Glucose Level 99 MG/DL 65-110 03/17/2016 4:47am 03/17/2016 5:22am Calculated Osmolality 282 MOSM/KG H 261-280 03/17/2016 4:47am 2015 5:22am Calcium Level 9.3 MG/DL 8.4-10.2 03/17/2016 4:47am 03/17/2016 5:22am Total Bilirubin 0.40 MG/DL 0.20-1.30 03/09/2016 1:52pm 03/09/2016 2: 12pm Alkaline Phosphatase 62 U/L 38-126 03/09/2016 1:52pm 03/09/2016 2:12pm Total Protein 8.4 G/DL H 6.3-8.2 03/09/2016 1:52pm 03/09/2016 2:12pm Albumin 3.9 G/DL 3.5-5.0 03/09/2016 1:5203/09/2016 2:12pm Globulin 4.5 G/DL H 2.4-3.6 03/09/2016 1:5203/09/2016 2:12pm Albumin/Globulin Ratio 0.9 RATIO L 1.1-2.2 03/09/2016 1:03/09/2016 2:12pm Aspartate Amino Transf (AST/SGOT) 28 U/L 14-36 03/09/2016 1:522015 2:12pm Alanine Aminotransferase (ALT/SGPT) 31 U/L -52 03/09/2016 1:5203/09 2:12pm Magnesium Level 2.2 MG/DL 1.6-2.3 03/16/2016 6:11am 03/16/2016 6:49am Plasma Lactate 0.9 MMOL/L 0.6-2.2 03/09/2016 6:28pm 03/09/2016 6:58pm Procalcitonin 0.06 NG/ML 03/09/2016 1:03/09/2016 2:27pm PCT </= 0.5 ng/mL - sepsis not likely; PCT >0.5 and </=2 ng/mL - sepsis possible; PCT >2 ng/mL - sepsis likely; PCT >/=10 ng/mL - systemic inflammatory response - sepsis or septic shock highly indicated. Arterial Blood pH 7.430 7.350-7.450 03/09/2016 2:03/09/2016 2: 31pm Arterial Blood Partial Pressure CO2 44 MMHG 34-45 03/09/2016 2: 2:31pm Arterial Blood pO2 at Patient Temp 75 MMHG L 80-100 03/09/2016 2: 2:31pm Arterial Blood HCO3 29 MEQ/L H 22-26 03/09/2016 2:03/09/2016 2: 31pm Arterial Blood Total CO2 30.6 MEQ/L H 23-27 03/09/2016 2:2015 2:31pm Arterial Blood Base Excess 4.3 MMOL/L H -2.0-2.0 03/09/2016 2:03/09 2:31pm Arterial Blood Oxygen Saturation 95.0 % 95.0-98.0 03/09/2016 2:20pm 2:31pm Blood Gas Oxygen Liter Flow 2 03/09/2016 2:20pm 03/09/2016 2:31pm Oxygen Delivery Method (LAB) NASAL CANNULA,LITERS 03/09/2016 2:20pm 03/09/2016 2:31pm Stool C. difficile Toxin B Gene PCR POSITIVE *A NEGATIVE 03/12/2016 7: 28pm 03/12/2016 8:39pm Urine Collection Type STRAIGHT CATH 03/09/2016 2:08pm 03/09/2016 2: 16pm Urine Color YELLOW YELLOW 03/09/2016 2:08pm 03/09/2016 2:16pm Urine Turbidity CLOUDY CLEAR 03/09/2016 2:08pm 03/09/2016 2:16pm Urine Specific [place] 1.020 1.015-1.025 03/09/2016 2:08pm 2015 2:16pm Urine pH 8.0 5.0-8.0 03/09/2016 2:08pm 03/09/2016 2:16pm Urine Leukocyte Esterase 1+ A NEGATIVE 03/09/2016 2:08pm 03/09/2016 2: 16pm Urine Nitrite POSITIVE A NEGATIVE 03/09/2016 2:08pm 03/09/2016 2:16pm Urine Protein 2+ A NEGATIVE 03/09/2016 2:08pm 03/09/2016 2:16pm Urine Glucose (UA) NEGATIVE NEGATIVE 03/09/2016 2:08pm 03/09/2016 2: 16pm Urine Ketones NEGATIVE NEGATIVE 03/09/2016 2:08pm 03/09/2016 2:16pm Urine Urobilinogen 1.0 EU/DL NORMAL 03/09/2016 2:08pm 03/09/2016 2: 16pm Urine Bilirubin NEGATIVE NEGATIVE 03/09/2016 2:08pm 03/09/2016 2: 16pm Urine Blood 1+ A NEGATIVE 03/09/2016 2:08pm 03/09/2016 2:16pm Urine WBC 20-30 /HPF H 0-5 03/09/2016 2:08pm 03/09/2016 2:26pm Urine RBC 1-3 /HPF 0-3 03/09/2016 2:08pm 03/09/2016 2:26pm Urine Squamous Epithelial Cells 0-5 03/09/2016 2:08pm 03/09/2016 2: 26pm Urine Bacteria 4+ H NEGATIVE 03/09/2016 2:08pm 03/09/2016 2:26pm Urine Amorphous Phosphates MANY 03/09/2016 2:08pm 03/09/2016 2: 26pm Urine Culture Indicated CULT REFLEXED &SETUP 03/09/2016 2:08pm 2:26pm Microbiology Results Procedure Source Organism/Result Collection Date/Time Result Date/Time Result Status Blood Culture Peripheral/Iv Start NO GROWTH AFTER 5 DAYS 03/09/2016 1:52pm 03/14/2016 1:57pm Final Urine Culture Urine, Straight Cath KLEBSIELLA OXYTOCA 03/09/2016 2:26pm 9:40am Final ENTEROCOC FAECALIS - (GROUP D) 03/09/2016 2:26pm 03/13/2016 9:40am Final Name: BELLE LOZA Unit #: [id number] : [id number] Sex: F Admit Date: Loc / Svc: ED Discharge Date: DIAGNOSTIC IMAGING REPORT Report #: [id number] [facility] Gurinder UDAY Indication: ITS.REASON: rhonchi LLL PROCEDURE: CHEST 1 VIEW: Encounter: Initial Comparison: Prior examinations dated 04/12/2011 Findings: The lungs are relatively hypoventilated. Again visualized is eventration of the right hemidiaphragm. The heart remains within normal limits size. The trachea is midline is no evidence mediastinal widening. The pulmonary vascularity is normal. There are mild increased interstitial markings that appear chronic. There is linear subsegmental atelectasis seen in the medial right lung base above the right hemidiaphragm. No acute consolidating infiltrates are seen. Costophrenic angles are clear. The bony thorax is stable again appearing mildly demineralized showing changes of a left shoulder arthroplasty. There is artifact from cardiac monitoring lead wires over the chest. Impression: 1. The lung griffiths are hypoventilated again showing eventration of the right hemidiaphragm. There is linear subsegmental atelectasis seen above the right hemidiaphragm. . Procedures Procedure Status Date Provider(s) URINALYSIS AUTO W/O SCOPE Completed 01/12/16 REPLACE DUOD/JEJ TUBE PERC Completed 02/23/16 JOSE RODRÍGUEZ MD, FACS, CWS EMERGENCY DEPT VISIT Completed 02/23/16 [id number]"LOW OSMOLAR CONTRAST MATERIAL, 300-399 MG/ML IODINE C Completed Encounters Encounter Location Arrival/Admit Date Discharge/Depart Date Attending Provider Discharged Inpatient [facility] 03/09/16 5:38pm 03/17/16 1:28pm KRISTOPHER BARNES MD Departed Emergency Room [facility] 02/23/16 2:01pm 02/23/16 4: 41pm SOFIE MENDOSA DO [facility] 01/12/16 11:32am GREGORY ROBERTO APRN
--- OUTSIDE RECORDS SUMMARY | 2016-07-30 20:15 | XMS REPORT | Continuity of Care Document ---
Author Author [facility] Address Unknown Phone Unavailable Allergies Active Description Code Type Severity Reaction Onset Reported/Identified Relationship to Patient Clinical Status Yes CODEINE Drug Allergy N/A N/A Yes PENTAZOCINE LACTATE 854712 Drug Allergy N/A N/A Yes MIGUELINA [id number] Drug Allergy N/A N/A Medications Medication Packaging Start Date Stop Date Route Dosage Sig [id number] 10/08/2013 Oral twice daily Problems Procedures Results Encounters ACCT No. Visit Date/Time Discharge Status Pt. Type Provider Facility Loc./Unit Complaint [id number] 02/12/2016 15:59:18 02/12/2016 15:59:18 DIS Outpatient [id number] 02/12/2016 15:58:18 02/12/2016 15:58:18 DIS Outpatient [id number] 02/12/2016 15:58:03 02/12/2016 15:58:03 DIS Outpatient [id number] 02/12/2016 15:57:47 02/12/2016 15:57:47 DIS Outpatient [id number] 11/17/2015 03:04:05 11/17/2015 03:04:05 ACT Outpatient [id number] 11/17/2015 02:56:55 11/17/2015 02:56:55 ACT Outpatient [id number] 11/17/2015 02:56:34 11/17/2015 02:56:34 ACT Outpatient [id number] 11/17/2015 02:49:37 11/17/2015 02:49:37 ACT Outpatient [id number] 11/17/2015 02:49:27 11/17/2015 02:49:27 ACT Outpatient [id number] 11/17/2015 02:49:26 11/17/2015 02:49:26 ACT Outpatient [id number] 11/17/2015 02:49:13 11/17/2015 02:49:13 ACT Outpatient [id number] 11/17/2015 02:49:12 11/17/2015 02:49:12 ACT Outpatient [id number] 11/17/2015 01:27:46 11/17/2015 01:27:46 ACT Outpatient [id number] 11/17/2015 01:16:27 11/17/2015 01:16:27 ACT Outpatient [id number] 11/17/2015 01:16:25 11/17/2015 01:16:25 ACT Outpatient [id number] 11/16/2015 18:15:49 11/16/2015 18:15:49 ACT Outpatient [id number] 11/16/2015 17:44:38 11/16/2015 17:44:38 ACT Outpatient [id number] 10/21/2014 12:12:49 10/21/2014 12:12:52 DIS Outpatient [id number] 10/08/2014 13:45:50 10/08/2014 23:59:59 CLS Outpatient [id number] 10/08/2014 13:21:21 10/08/2014 23:59:59 CLS Outpatient [id number] 10/08/2014 13:21:20 10/08/2014 23:59:59 CLS Outpatient [id number] 10/08/2014 13:14:28 10/08/2014 23:59:59 CLS Outpatient [id number] 10/08/2014 12:46:24 10/08/2014 23:59:59 CLS Outpatient [id number] 10/08/2014 12:46:21 10/08/2014 23:59:59 CLS Outpatient [id number] 10/08/2014 12:47:13 10/08/2014 12:47:16 DIS Outpatient [id number] 08/15/2014 16:14:03 08/15/2014 16:14:04 DIS Outpatient [id number] 06/21/2014 13:01:42 06/21/2014 23:59:59 CLS Outpatient [id number] 06/21/2014 13:01:43 06/21/2014 13:01:43 DIS Outpatient [id number] 05/04/2016 10:54:33 DIS Outpatient [id number] 05/04/2016 10:53:39 DIS Outpatient [id number] 01/22/2016 15:57:55 DIS Outpatient [id number] 01/22/2016 15:56:55 DIS Outpatient [id number] 01/22/2016 15:56:52 DIS Outpatient [id number] 01/19/2016 08:19:54 DIS Outpatient [id number] 11/16/2015 17:30:41 Document Registration [id number] 11/16/2015 17:30:00 Document Registration [id number] 12/03/2014 07:15:54 Document Registration [id number] 12/03/2014 07:15:51 Document Registration [id number] 10/21/2014 08:37:42 Document Registration [id number] 10/08/2014 16:45:31 Document Registration [id number] 10/08/2014 16:39:42 Document Registration [id number] 10/08/2014 12:51:00 Document Registration
--- OUTSIDE RECORDS SUMMARY | 2016-07-30 20:15 | XMS REPORT | Continuity of Care Document ---
Author Author [facility] Organization [facility] Address Unknown Phone Unavailable Support Name Relationship Address Phone CATHERINE YEE MD Caregiver [address] [place] [address] BELLE FARAH Next Of Kin [address] [place] [address] Insurance Providers Payer Name Policy Number Subscriber Name Relationship Medicare [id number] Belle Nugent 17 Self Alee [employer] [id number] Belle Nugent 17 Self Problems No known [...] FEW DAYS WILL REFRAIN UNTIL AFTER PROCEDURE 10/09/2013 1:25pm Hx Alcohol Use No 10/09/2013 1:25pm Has the pt used tobacco in the last 12 months Yes 10/09/2013 1:25pm Query Response Start Date Stop Date Smoking [...] Vital Signs Vital Response Date/Time Temperature (Fahrenheit) 96.9 deg F (96.8 - 99.1) Temperature (Calculated Celsius) 36.60841 degrees C (36.0 - 37.3) Temperature Source Temporal Pulse Rate (adult) 68 bpm (60 - 100) Respiratory Rate 16 breaths/min (10 - 20) O2 Sat by Pulse Oximetry 94 % (90 - 100) Blood Pressure 122/81 mm Hg Blood Pressure Source Automatic Cuff Height 5 ft 7 in Weight 215 lb Body Mass Index 33.0 kg/m^2 Results [...] lab rpt scanned - --- 05/20/11 1258 ---OSMOS previously reported as: SEND OUT Sodium Level [...] Has specimen been collected/obtained? Y Urine Specific [place] April 12, 2011 6:26pm 1.020 - Has [...] 11, 2012 7:42pm LAB TEST FORM REQUEST [id number] - Urine Methadone Screen December 04, 2009 [...] SPINE LUMBAR/SACRAL completed 09/05/13 CATHERINE YEE MD INJECT SPINE LUMBAR/SACRAL completed 09/26/13 CATHERINE YEE MD Lumbar epidural steroid injection completed 10/10/13 CATHERINE YEE MD
--- NOTE | 2016-07-30 20:46 | ERPDOC ---
Departure Disposition Decision Date: July 30, 2016 Disposition Decision Time: 21:15 (ERIC GONZALES APRN) Disposition: 02 TO [facility] Impression Impression (ERIC GONZALES APRN) Impression: Primary Impression: Malfunctioning jejunostomy tube Severity: Moderate (ERIC GONZALES APRN) Condition: Stable Seen By: Mid-level only (ERIC GONZALES APRN) Referrals: MINE DOS SANTOS MD (Family) Problems/Meds/Labs Reviewed?: Yes Medications reviewed and manag: Yes (ERIC GONZALES APRN) Follow up care ordered?: Yes Mental Status: Alert (ERIC GONZALES APRN) HPI - General Medical General Stated Complaint: PULLING AT FEEDING TUBE Time Seen by Provider: 20:33 Source: half-way records (ERIC GONZALES APRN) Time Seen by Provider: 20:33 (MICHAEL NAGY DO) HPI - General Medical Initial Comments 65-year-old female is sent to ED from [facility] for evaluation of J-tube. Patient was pulling on J-tube this evening and staff are unsure if it's still working. Patient receives medications, fluids and food per J-tube per half-way staff. Patient denies any pain. (ERIC GONZALES APRN) Allergies: Coded Allergies: gold Au 198 (Verified Allergy, Unknown, 03/09/16) Pentazocine Lactate (Verified Adverse Reaction, Severe, VIOLENT, 03/09/16) codeine (Unverified Adverse Reaction, Unknown, HEADACHE, 03/09/16) Past History Patient Surgical History Cholecystectomy Spinal fusion-multiple Hysterectomy PEG tube placement (ERIC GONZALES APRN) Past Medical History Metabolic: hypertension Cardiac: DENIES: angina Respiratory: COPD, asthma, pneumonia GI: ulcers Female: renal failure Neurological: CVA, other Musculoskeletal: back pain, osteoarthritis Infectious: hepatitis C Psychological: depression (ERIC GONZALES APRN) Surgical History General: back, gallbladder, other (J-tube), tonsils Reproductive/: hysterectomy, tubal ligation Joint: shoulder (ERIC GONZALES APRN) Family History Family PMH: FOUND: [place], diabetes (ERIC GONZALES APRN) Vaccines Hx Influenza Vaccination: No (Unknown) Hx Pneumococcal Vaccination: Yes (Pt. reports last year) (ERIC GONZALES APRN) Social History Does patient use chewing tobac: No # of Packs/Tins per Day: 1 # of Years: 50 Second Hand Exposure: No Substance Use Type: does not use Alcohol Intake: none Sexuality: male partner Housing: half-way Household Members: significant other Service: No Current Occupational Status: retired Occupational Hazard: No (ERIC GONZALES APRN) Review of Systems Unable to Obtain Comments Suspect to the patient's cognition (ERIC GONZALES APRN) Constitutional Constitutional: DENIES: chills, dizziness, fever, weakness (ERIC GONZALES PROCESSOR INSPECTOR) Eyes General: DENIES: erythema, exudate Lids/Accessories: DENIES: erythema, swelling (ERIC GONZALES PROCESSOR INSPECTOR) ENMT Ears: DENIES: pain Sinuses: DENIES: congestion, rhinorrhea Mouth/Throat: DENIES: sore throat (ERIC GONZALES PROCESSOR INSPECTOR) Cardiovascular Cardiac: DENIES: chest pain, murmur Rhythm/Rate: DENIES: palpitations (ERIC GONZALES PROCESSOR INSPECTOR) Pulmonary Respiratory: DENIES: cough, dyspnea (ERIC GONZALES PROCESSOR INSPECTOR) GI Upper Abdomen: dysphagia, DENIES: nausea, pain, vomiting Lower Abdomen: DENIES: diarrhea, pain (ERIC GONZALES A PROCESSOR INSPECTOR) General: DENIES: dysuria, pain (ERIC GONZALES A PROCESSOR INSPECTOR) Musculoskeletal General: DENIES: pain, tenderness (ERIC GONZALES A PROCESSOR INSPECTOR) Integumentary Skin: DENIES: color change, itching, rash (ERIC GONZALES A PROCESSOR INSPECTOR) Neurological General: DENIES: change in strength, headache (ERIC GONZALES A PROCESSOR INSPECTOR) Psychiatric Psychiatric: DENIES: anxiety, depression, nervousness (ERIC GONZALES A PROCESSOR INSPECTOR) Physical Exam General General Nourishment: well nourished, well developed, no acute distress, adult General Body Habitus: well groomed (ERIC GONZALES A PROCESSOR INSPECTOR) Vitals and Pain First Documented Vital Signs Date Time Temp Pulse Resp B/P Pulse Ox O2 Delivery O2 Flow Rate FiO2 07/30/16 20:08 98.3 76 20 105/64 97 Room Air (MICHAEL NAGY DO) Vitals and Pain Weight: Kilograms: Height (feet): 5 Height (inches): 6.00 Triage Pain Scale: (ERIC GONZALES PROCESSOR INSPECTOR) Eyes (brief) Eyes Brief: found: EOMI (MARIELY GONZALESS Heide PROCESSOR INSPECTOR) ENMT (brief) ENMT Brief: NOT FOUND: nasal exudate, nasal swelling (MARIELY GONZALESS A PROCESSOR INSPECTOR) Neck (brief) Neck: FOUND: trachea midline (MARIELY GONZALESS A PROCESSOR INSPECTOR) Respiratory (brief) Respiratory: FOUND: clear all griffiths, equal bilaterally, symmetrical (MARIELY GONZALESS A PROCESSOR INSPECTOR) Cardiovascular (brief) Cardiac: FOUND: regular rate, regular rhythm (MARIELY GONZALESS A PROCESSOR INSPECTOR) Abdomen Inspection: FOUND: other (J-tube intact), NOT FOUND: distention Palpation: FOUND: soft, NOT FOUND: tender Auscultation: FOUND: normoactive (x4) (MARIELY GONZALESS Heide PROCESSOR INSPECTOR) Musculoskeletal (brief) Musculoskeletal Brief: NOT FOUND: spasm, tenderness (MARIELY GONZALESS Heide PROCESSOR INSPECTOR) Integumentary (brief) Integumentary Brief: FOUND: dry, pink, warm (MARIELY GONZALESS A PROCESSOR INSPECTOR) Neurologic (brief) Neurological Brief: FOUND: motor-no gross deficits, sensory-no gross deficits ( MARIELY GONZALESS A PROCESSOR INSPECTOR) Psychiatric (brief) Psychiatric Brief: FOUND: alert, oriented (person and place, not time) (MARIELY GONZALESS Heide PROCESSOR INSPECTOR) Differential Diagnoses Considering: Other (Malfunction J-tube) (MARIELY GONZALESS Heide OVIEDO) Progress Progress Progress Nurse unable to pass any air through J-tube. (MARIELY GONZALESS Heide OVIEDO) Consult/PCP Consult/PCP : Physician Contacted: Dr. Jett Villanueva Time of first response: 21:27 Type of discussion: Admit Discussion/PCP Discussion Details I discussed patient's HPI, past medical history, exam findings, vital signs with Dr. Jett Villanueva surgeon at [facility]. Dr. Villanueva said that he would accept patient and to send the patient to the ER. (ERIC GONZALES APRN) ERIC GONZALES APRN July 30, 2016 20:46 MICHAEL NAGY DO July 31, 2016 01:36
--- NOTE | 2016-07-30 20:55 | NUR ---
PEG TUBE PEG TUBE APPEARS TO BE IN PLACE UNABLE TO INSERT AIR TO LISTEN FOR PLACEMENT
--- OUTSIDE RECORDS SUMMARY | 2016-07-30 20:57 | XMS REPORT | Continuity of Care Document ---
Author Author [facility] Address Unknown Phone Unavailable Allergies Active Description Code Type Severity Reaction Onset Reported/Identified Relationship to Patient Clinical Status Yes CODEINE Drug Allergy N/A N/A Yes PENTAZOCINE LACTATE 969776 Drug Allergy N/A N/A Yes MIGUELINA [id number] Drug Allergy N/A N/A Medications Medication Packaging Start Date Stop Date Route Dosage Sig [id number] 10/08/2013 Oral twice daily Problems Procedures Results Encounters ACCT No. Visit Date/Time Discharge Status Pt. Type Provider Facility Loc./Unit Complaint [id number] 02/12/2016 15:59:18 02/12/2016 15:59:18 DIS Outpatient [id number] 02/12/2016 15:58:18 02/12/2016 15:58:18 DIS Outpatient [id number] 02/12/2016 15:58:03 02/12/2016 15:58:03 DIS Outpatient [id number] 02/12/2016 15:57:47 02/12/2016 15:57:47 DIS Outpatient [id number] 11/17/2015 03:04:05 11/17/2015 03:04:05 ACT Outpatient [id number] 11/17/2015 02:56:55 11/17/2015 02:56:55 ACT Outpatient [id number] 11/17/2015 02:56:34 11/17/2015 02:56:34 ACT Outpatient [id number] 11/17/2015 02:49:37 11/17/2015 02:49:37 ACT Outpatient [id number] 11/17/2015 02:49:27 11/17/2015 02:49:27 ACT Outpatient [id number] 11/17/2015 02:49:26 11/17/2015 02:49:26 ACT Outpatient [id number] 11/17/2015 02:49:13 11/17/2015 02:49:13 ACT Outpatient [id number] 11/17/2015 02:49:12 11/17/2015 02:49:12 ACT Outpatient [id number] 11/17/2015 01:27:46 11/17/2015 01:27:46 ACT Outpatient [id number] 11/17/2015 01:16:27 11/17/2015 01:16:27 ACT Outpatient [id number] 11/17/2015 01:16:25 11/17/2015 01:16:25 ACT Outpatient [id number] 11/16/2015 18:15:49 11/16/2015 18:15:49 ACT Outpatient [id number] 11/16/2015 17:44:38 11/16/2015 17:44:38 ACT Outpatient [id number] 10/21/2014 12:12:49 10/21/2014 12:12:52 DIS Outpatient [id number] 10/08/2014 13:45:50 10/08/2014 23:59:59 CLS Outpatient [id number] 10/08/2014 13:21:21 10/08/2014 23:59:59 CLS Outpatient [id number] 10/08/2014 13:21:20 10/08/2014 23:59:59 CLS Outpatient [id number] 10/08/2014 13:14:28 10/08/2014 23:59:59 CLS Outpatient [id number] 10/08/2014 12:46:24 10/08/2014 23:59:59 CLS Outpatient [id number] 10/08/2014 12:46:21 10/08/2014 23:59:59 CLS Outpatient [id number] 10/08/2014 12:47:13 10/08/2014 12:47:16 DIS Outpatient [id number] 08/15/2014 16:14:03 08/15/2014 16:14:04 DIS Outpatient [id number] 06/21/2014 13:01:42 06/21/2014 23:59:59 CLS Outpatient [id number] 06/21/2014 13:01:43 06/21/2014 13:01:43 DIS Outpatient [id number] 05/04/2016 10:54:33 DIS Outpatient [id number] 05/04/2016 10:53:39 DIS Outpatient [id number] 01/22/2016 15:57:55 DIS Outpatient [id number] 01/22/2016 15:56:55 DIS Outpatient [id number] 01/22/2016 15:56:52 DIS Outpatient [id number] 01/19/2016 08:19:54 DIS Outpatient [id number] 11/16/2015 17:30:41 Document Registration [id number] 11/16/2015 17:30:00 Document Registration [id number] 12/03/2014 07:15:54 Document Registration [id number] 12/03/2014 07:15:51 Document Registration [id number] 10/21/2014 08:37:42 Document Registration [id number] 10/08/2014 16:45:31 Document Registration [id number] 10/08/2014 16:39:42 Document Registration [id number] 10/08/2014 12:51:00 Document Registration
--- OUTSIDE RECORDS SUMMARY | 2016-07-30 20:57 | XMS REPORT | Continuity of Care Document ---
Author Author [facility] Organization [facility] Address Unknown Phone Unavailable Support Name Relationship Address Phone CATHERINE YEE MD Caregiver [address] [place] [address] BELLE FARAH Next Of Kin [address] [place] [address] Insurance Providers Payer Name Policy Number Subscriber Name Relationship Medicare [id number] Belle [place]ugent 17 Self Alee [employer] [id number] Belle Nugent 17 Self Problems No known [...] F (96.8 - 99.1) Temperature (Calculated Celsius) 36.38160 degrees C (36.0 - 37.3) Temperature Source [...] Has specimen been collected/obtained? Y Urine Specific [place] April 12, 2011 6:26pm 1.020 - Has [...] 11, 2012 7:42pm LAB TEST FORM REQUEST [id number] - Urine Methadone Screen December 04, 2009 [...]
--- OUTSIDE RECORDS SUMMARY | 2016-07-30 20:58 | XMS REPORT | Continuity of Care Document ---
Author Author [facility] Address Unknown Phone Unavailable Allergies Active Description Code Type Severity Reaction Onset Reported/Identified Relationship to Patient Clinical Status Yes CODEINE Drug Allergy N/A N/A Yes PENTAZOCINE LACTATE 461650 Drug Allergy N/A N/A Yes MIGUELINA [id number] Drug Allergy N/A N/A Medications Medication Packaging Start Date Stop Date Route Dosage Sig [id number] 10/08/2013 Oral twice daily Problems Procedures Results Encounters ACCT No. Visit Date/Time Discharge Status Pt. Type Provider Facility Loc./Unit Complaint [id number] 02/12/2016 15:59:18 02/12/2016 15:59:18 DIS Outpatient [id number] 02/12/2016 15:58:18 02/12/2016 15:58:18 DIS Outpatient [id number] 02/12/2016 15:58:03 02/12/2016 15:58:03 DIS Outpatient [id number] 02/12/2016 15:57:47 02/12/2016 15:57:47 DIS Outpatient [id number] 11/17/2015 03:04:05 11/17/2015 03:04:05 ACT Outpatient [id number] 11/17/2015 02:56:55 11/17/2015 02:56:55 ACT Outpatient [id number] 11/17/2015 02:56:34 11/17/2015 02:56:34 ACT Outpatient [id number] 11/17/2015 02:49:37 11/17/2015 02:49:37 ACT Outpatient [id number] 11/17/2015 02:49:27 11/17/2015 02:49:27 ACT Outpatient [id number] 11/17/2015 02:49:26 11/17/2015 02:49:26 ACT Outpatient [id number] 11/17/2015 02:49:13 11/17/2015 02:49:13 ACT Outpatient [id number] 11/17/2015 02:49:12 11/17/2015 02:49:12 ACT Outpatient [id number] 11/17/2015 01:27:46 11/17/2015 01:27:46 ACT Outpatient [id number] 11/17/2015 01:16:27 11/17/2015 01:16:27 ACT Outpatient [id number] 11/17/2015 01:16:25 11/17/2015 01:16:25 ACT Outpatient [id number] 11/16/2015 18:15:49 11/16/2015 18:15:49 ACT Outpatient [id number] 11/16/2015 17:44:38 11/16/2015 17:44:38 ACT Outpatient [id number] 10/21/2014 12:12:49 10/21/2014 12:12:52 DIS Outpatient [id number] 10/08/2014 13:45:50 10/08/2014 23:59:59 CLS Outpatient [id number] 10/08/2014 13:21:21 10/08/2014 23:59:59 CLS Outpatient [id number] 10/08/2014 13:21:20 10/08/2014 23:59:59 CLS Outpatient [id number] 10/08/2014 13:14:28 10/08/2014 23:59:59 CLS Outpatient [id number] 10/08/2014 12:46:24 10/08/2014 23:59:59 CLS Outpatient [id number] 10/08/2014 12:46:21 10/08/2014 23:59:59 CLS Outpatient [id number] 10/08/2014 12:47:13 10/08/2014 12:47:16 DIS Outpatient [id number] 08/15/2014 16:14:03 08/15/2014 16:14:04 DIS Outpatient [id number] 06/21/2014 13:01:42 06/21/2014 23:59:59 CLS Outpatient [id number] 06/21/2014 13:01:43 06/21/2014 13:01:43 DIS Outpatient [id number] 05/04/2016 10:54:33 DIS Outpatient [id number] 05/04/2016 10:53:39 DIS Outpatient [id number] 01/22/2016 15:57:55 DIS Outpatient [id number] 01/22/2016 15:56:55 DIS Outpatient [id number] 01/22/2016 15:56:52 DIS Outpatient [id number] 01/19/2016 08:19:54 DIS Outpatient [id number] 11/16/2015 17:30:41 Document Registration [id number] 11/16/2015 17:30:00 Document Registration [id number] 12/03/2014 07:15:54 Document Registration [id number] 12/03/2014 07:15:51 Document Registration [id number] 10/21/2014 08:37:42 Document Registration [id number] 10/08/2014 16:45:31 Document Registration [id number] 10/08/2014 16:39:42 Document Registration [id number] 10/08/2014 12:51:00 Document Registration
--- OUTSIDE RECORDS SUMMARY | 2016-07-30 20:58 | XMS REPORT | Continuity of Care Document ---
Author Author [facility] Organization [facility] Address Unknown Phone Unavailable Support Name Relationship Address Phone CATHERINE YEE MD Caregiver [address] [place] [address] BELLE FARAH Next Of Kin [address] [place] [address] Insurance Providers Payer Name Policy Number Subscriber Name Relationship Medicare [id number] Belle Nugent 17 Self Alee [employer] [id number] Belle Nugent 17 Self Problems No known [...] F (96.8 - 99.1) Temperature (Calculated Celsius) 36.78147 degrees C (36.0 - 37.3) Temperature Source [...] Has specimen been collected/obtained? Y Urine Specific [place] April 12, 2011 6:26pm 1.020 - Has [...] 11, 2012 7:42pm LAB TEST FORM REQUEST [id number] - Urine Methadone Screen December 04, 2009 [...]
[2016-07-30] MEDS ORDERED: DIVA125C PO (21:56)
[2016-07-30] MEDS ORDERED: FENT1PAT66 TOP (21:56)
[2016-07-30] MEDS ORDERED: OLAN5TAB2 PO (21:56)
--- NOTE | 2016-07-30 22:13 | NUR ---
REPORT REPORT CALLED TO [facility] ED TALKING TO SOBIA ADAMS SHE NEEDED TO GET CRITICAL REPORT FROM ANOTHER EMS WILL CALL ME BACK FOR REPORT
--- NOTE | 2016-07-30 22:36 | NUR ---
REPORT CALL FROM SOBIA AT [facility] ED FINISHED REPORT
--- NOTE | 2016-07-30 22:43 | NUR ---
EMS 911 CALLED FOR TRANSFER TO [facility] ED
--- NOTE | 2016-07-30 22:46 | NUR ---
911 RETURN CALL FROM DISPATCH WILL HOLD THE PT UNTIL EMS UNIT AVAILABLE
--- NOTE | 2016-07-30 23:02 | NUR ---
[facility] DISPATCH PAGED OUT TRANSFER FOR PT
[2016-07-30 23:16] VITALS: BP 108/60; PULSE 80; RESP 18; TEMP 98.3; O2SAT 99
--- NOTE | 2016-07-30 23:16 | NUR ---
TRANSFER PT TRANSFERED TO [facility] ED BY PAVAN CASTILLO
== END 2016-07-30 23:16 | disposition short-term general hospital (02) ==
LOC: ED 20:08
DX: K94.13 Enterostomy malfunction (principal); Y83.3 Surgical operation with formation of external stoma as the cause of abnormal reaction of the patient, or of later complication, without mention of misadventure at the time of the procedure; Y73.1 Therapeutic (nonsurgical) and rehabilitative gastroenterology and urology devices associated with adverse incidents